=== PATIENT | male | born 1945 | race Caucasian/White ===

== ENCOUNTER 2017-03-30 12:17 | Inpatient (IN) | payer OTHER, MEDICARE ==
[2017-03-30 13:32] LABS: RDW 13.7 % (11.9-15.9)
--- NOTE | 2017-03-30 13:33 | PDOC ---
History of Present Illness - General Chief Complaint: Shortness of Breath Stated Complaint: COLD SYMPTOMS Time Seen by Provider: 03/30/17 12:52 History Source: Patient, Spouse Exam Limitations: No Limitations - History of Present Illness Initial Comments: Patient is a 71 yo M with a PMH of CLL (dx 15 years ago), DVT (5 years ago), presented today because of SOB that started today. He said he has been sick the past week with cough with green sputum production, congestion, sore throat, headache, and nausea, but the SOB started today. He reports having a temp of 101 at the house a few days ago. He took a cough suppressant over the counter which did not alleviate his symptoms. He is also on his 4th day of amoxacillin which he started taking on his own. He also mentioned he had tooth pain that started around the same time as his symptoms. He went to the dentist and said his tooth was infected. He denies urinary symptoms, chest pain, abdominal pain, dizziness and diarrhea. 03/30/17 13:23 03/30/17 14:57 03/30/17 15:23 Timing/Duration: reports: week Past History - Past Medical History Allergies/Adverse Reactions: Allergies Allergy/AdvReac Type Severity Reaction Status Date / Time No Known Drug Allergies Allergy Verified 11/29/14 01:25 Home Medications: Ambulatory Orders Amoxicillin/Potassium Clav [Augmentin 500-125 Tablet] 1 each PO TID 11/29/14 Warfarin Sodium 4 mg PO BID 11/29/14 Anemia: No Asthma: No Cancer: Yes (SKIN,CLL) Cardiac Disorders: No CVA: No COPD: No CHF: No DVT: Yes (recurrent DVT's) Dementia: No Diabetes: No GI Disorders: No Disorders: No HTN: No Hypercholesterolemia: No Liver Disease: No Seizures: No Thyroid Disease: No - Surgical History Abdominal Surgery: No Appendectomy: No Cardiac Surgery: No Cholecystectomy: No Lung Surgery: No Neurologic Surgery: No Orthopedic Surgery: No - Immunization History Immunization Up to Date: Yes - Suicide/Smoking/Psychosocial Hx Smoking History: Former smoker Have you smoked in the past 12 months: No If you are a former smoker, when did you quit?: 1968 Information on smoking cessation initiated: No Hx Alcohol Use: Yes (social) Drug/Substance Use Hx: No Substance Use Type: None Hx Substance Use Treatment: No Review of Systems - Review of Systems Able to Perform ROS?: Yes Is the patient limited Slovenian proficient: No Constitutional: Yes: Fever HEENTM: Yes: Nose Congestion, Throat Pain, Dental Problems Respiratory: Yes: Cough Cardiac (ROS): Yes: Palpitations. No: Chest Pain, Edema ABD/GI: No: Abdominal Distended, Diarrhea, Vomiting : No: Burning, Dysuria Neurological: Yes: Headache. No: Numbness, Tingling *Physical Exam - Vital Signs Last Vital Signs Temp Pulse Resp BP Pulse Ox 98.7 F 140 H 16 130/85 97 03/30/17 13:06 03/30/17 13:06 03/30/17 13:06 03/30/17 13:06 03/30/17 13:06 - Physical Exam General Appearance: Yes: Appropriately Dressed. No: Apparent Distress HEENT: positive: EOMI, Normal Voice, Symmetrical. negative: Scleral Icterus (R) , Scleral Icterus (L), Pharyngeal Erythema, Tonsillar Exudate, Tonsillar Erythema, Nasal Congestion Neck: positive: Supple Respiratory/Chest: positive: Lungs Clear, Normal Breath Sounds, Rapid RR. negative: Chest Tender, Decreased Breath Sounds, Wheezing Cardiovascular: positive: Tachycardia, Irregularly Irregular. negative: Regular Rhythm, Regular Rate Gastrointestinal/Abdominal: positive: Normal Bowel Sounds, Soft. negative: Tender, Distended Extremity: positive: Normal Capillary Refill. negative: Pedal Edema Neurologic: positive: Fully Oriented, Alert, Motor Strength 5/5 Heart Score/ECG Review - Troponin Troponin: </= normal limit - ECG Intrepretation Rhythm: Irregularly Irregular ED Treatment Course - LABORATORY CBC & Chemistry Diagram: 03/30/17 13:25 03/30/17 13:25 - RADIOLOGY Radiology Studies Ordered: Category Date Time Status CXRPORT [CHEST X-RAY PORTABLE*] [RAD] Stat Radiology 03/30/17 13:21 Ordered Progress Note - Progress Note Progress Note: #Rapid A-Fib #SOB #URI # r/o PE, hx of recurrent DVT Orders: -negative trops -EKG: rapid A-fib -BNP: 1046 -CTA chest -Blood Cultures -IVF: 1 L Bolus, .5L Bolus -Rate control with Metoprolol 5mg IV, 25mg PO Medical Decision Making - Medical Decision Making Patient is a 71 yo M with a PMH of recurrent DVT, CLL, presents today with SOB , cough, and a sore throat and was found to have new onset A-fib with RVR. #New onset A-fib -Dr. Wheat consulted -Irregularly irregular rythm -Rate control with Metoprolol 5mg IV, 25mg PO -trops negative -1 L BOLUS NS #SOB -history of DVT -CTA unremarkable for PE #Viral URI - cough, sore throat, nausea x 1 week -subjective fever -IV fluids -Supportive treatment #Elevated WBC -likely from history of CLL Discussed case with Dr. Wheat, agrees to admit patient for tele. *DC/Admit/Observation/Transfer Diagnosis at time of Disposition: SOB (shortness of breath) - Discharge Dispostion Condition at time of disposition: Fair Admit: Yes
[2017-03-30 13:44] LABS: INR 3.87 (0.82-1.09); PROTHROMBIN TIME (PATIENT) 43.7 SEC (9.98-11.88)
[2017-03-30 13:50] LABS: MCH 32.5 pg (25.7-33.7); MCHC 33.4 g/dl (32.0-35.9); MEAN CELL VOLUME 97.5 fl (80-96); MEAN PLT VOLUME 8.2 fl (7.5-11.1); PLATELET COUNT 143 K/MM3 (134-434)
[2017-03-30] MEDS ORDERED: SODIUM CHLORIDE 1,000 ML IV STA (13:53)
[2017-03-30 13:56] LABS: ALBUMIN 3.6 g/dl (3.4-5.0); ANION GAP 10 (8-16); BILIRUBIN,TOTAL 1.1 mg/dL (0.2-1.0); CALCIUM 8.7 mg/dL (8.5-10.1); CO2 25 mmol/L (21-32); GLUCOSE,RANDOM 117 mg/dL (74-106); SGPT/ALT 23 U/L (12-78)
[2017-03-30 13:58] LABS: WHITE BLOOD COUNT 234.1 K/mm3 (4.0-10.0)
[2017-03-30 14:00] LABS: ALK PHOS 156 U/L (45-117); CPK 64 IU/L (39-308); TROPONIN I < 0.02 ng/ml (0.00-0.05)
--- NOTE | 2017-03-30 14:13 | PDOC ---
Attending Attestation - Resident Resident Name: Mike Garrido - ED Attending Attestation I have performed the following: I have examined & evaluated the patient, The case was reviewed & discussed with the resident, I agree w/resident's findings & plan, Exceptions are as noted - HPI HPI: 03/30/17 14:03 71 M with h/o CLL, DVT on coumadin, presents to ER with SOB x 1 week. Pt states his symptoms began with nasal congestion and progressed to SOB. Pt denies CP. Endorses subjective fevers and chills. Denies leg swelling. Denies recent travel /immobilization. - Physicial Exam PE: 03/30/17 14:14 "GENERAL: Awake, alert, and fully oriented, in no acute distress HEAD: No signs of trauma EYES: PERRLA, EOMI, sclera anicteric, conjunctiva clear ENT: Auricles normal inspection, hearing grossly normal, nares patent, oropharynx clear without exudates. Moist mucosa NECK: Nontender, no stepoffs, Normal ROM, supple, no lymphadenopathy, JVD, or masses LUNGS: Breath sounds equal, clear to auscultation bilaterally. No wheezes, and no crackles HEART: irregularly irregular rhythm, normal S1 and S2, no murmurs, rubs or gallops ABDOMEN: Soft, normoactive bowel sounds. Nontender, No guarding, no rebound. No masses EXTREMITIES: Normal range of motion, no edema. No clubbing or cyanosis. No cords, erythema, or tenderness NEUROLOGICAL: Cranial nerves II through XII intact. 5/5 strength and sensation in all extremities, Normal speech, normal gait SKIN: Warm, Dry, normal turgor, no rashes or lesions noted. " - Medical Decision Making 03/30/17 14:15 71 M with CLL, DVT on coumadin, presenting to ER with SOB. Pt found to be in new onset atrial fibrillation with RVR, which may explain pt's symptoms. However , given h/o DVT, will need to r/o PE as well. Will also eval for infectious process given subjective fevers and tachycardia. - Labs, trop, BNP - CTA chest - Cultures - IVF - Rate control PRN 03/30/17 16:36 CBC,CMP WBC 234.1 K/mm3 (4.0-10.0) H* 03/30/17 13:25 RBC 3.81 M/mm3 (4.00-5.60) L 03/30/17 13:25 Hgb 12.4 GM/dL (11.7-16.9) 03/30/17 13:25 Hct 37.2 % (35.4-49) 03/30/17 13:25 MCV 97.5 fl (80-96) H 03/30/17 13:25 MCH 32.5 pg (25.7-33.7) 03/30/17 13:25 MCHC 33.4 g/dl (32.0-35.9) 03/30/17 13:25 RDW 13.7 % (11.9-15.9) 03/30/17 13:25 Plt Count 143 K/MM3 (134-434) D 03/30/17 13:25 MPV 8.2 fl (7.5-11.1) 03/30/17 13:25 Total Counted 100 03/30/17 13:25 Neutrophils % (Manual) 8 % (42.8-82.8) L 03/30/17 13:25 Lymphocytes % (Manual) 53 % (8-40) H 03/30/17 13:25 Monocytes % (Manual) 2 % (3.8-10.2) L 03/30/17 13:25 Smudge Cells Moderate 03/30/17 13:25 Platelet Estimate Decreased (NORMAL) 03/30/17 13:25 Platelet Comment No clumping noted 03/30/17 13:25 Sodium 138 mmol/L (136-145) 03/30/17 13:25 Potassium 4.3 mmol/L (3.5-5.1) 03/30/17 13:25 Chloride 103 mmol/L (98-107) 03/30/17 13:25 Carbon Dioxide 25 mmol/L (21-32) 03/30/17 13:25 Anion Gap 10 (8-16) 03/30/17 13:25 BUN 18 mg/dL (7-18) D 03/30/17 13:25 Creatinine 1.0 mg/dL (0.7-1.3) 03/30/17 13:25 Creat Clearance w eGFR > 60 (>60) 03/30/17 13:25 Random Glucose 117 mg/dL (74-106) H 03/30/17 13:25 Lactic Acid 1.0 mmol/L (0.4-2.0) 03/30/17 14:30 Calcium 8.7 mg/dL (8.5-10.1) 03/30/17 13:25 Total Bilirubin 1.1 mg/dL (0.2-1.0) H D 03/30/17 13:25 AST 25 U/L (15-37) D 03/30/17 13:25 ALT 23 U/L (12-78) D 03/30/17 13:25 Alkaline Phosphatase 156 U/L (45-117) H D 03/30/17 13:25 Creatine Kinase 64 IU/L (39-308) 03/30/17 13:25 Troponin I < 0.02 ng/ml (0.00-0.05) 03/30/17 13:25 B-Natriuretic Peptide 1046.28 pg/ml (5-125) H 03/30/17 13:25 Total Protein 7.0 g/dl (6.4-8.2) 03/30/17 13:25 Albumin 3.6 g/dl (3.4-5.0) 03/30/17 13:25 CXR clear. Pt with negative troponin. BNP elevated but pt with no evidence of pulmonary edema. CTA chest pending. Pt's heart rate with minimal response to 1.5 L NS bolus. Given metoprolol 5mg IV and 25mg PO for rate control with improvement in HR from 140 to 120. Additional metoprolol 5mg IV ordered. Pt signed out to night team at 5PM Disposition pending CTA chest, continued monitoring and rate control, and admission to hospital for further treatment. Case discussed in detail with oncoming Emergency Physician including history, physical exam and ancillary studies. Oncoming Emergency Physician has assumed care for the patient and will complete the evaluation and treatment. Patient is aware of the plan. Heart Score/ECG Review - ECG Impressions Comment:: 03/30/17 14:14 atrial fibrillation, rate 141, no MELANY/STDs, no TWIs, axis wnl
[2017-03-30 14:24] LABS: SGOT/AST 25 U/L (15-37)
[2017-03-30 14:29] LABS: PLATELET ESTIMATE DECREASED (NORMAL); REACTIVE LYMPHOCYTES 37 % (0-80); TOTAL CELLS COUNTED 100
[2017-03-30 14:30] LABS: SMUDGE CELLS MODERATE
[2017-03-30] MEDS ORDERED: METOPROLOL SUCCINATE 25 MG TAB.SR.24H (FP) PO ONE (14:52)
[2017-03-30] MEDS ORDERED: METOPROLOL TARTRATE 5 MG/5 ML VIAL IVPUSH ONE ×2 (14:52→16:22)
[2017-03-30] MEDS ORDERED: SODIUM CHLORIDE 500 ML IV STA (14:52)
[2017-03-30] MEDS ORDERED: METOPROLOL TARTRATE 5 MG/5 ML VIAL ONE ×2 (14:55→17:16)
[2017-03-30] MEDS ORDERED: METOPROLOL TARTRATE 25 MG TABLET (FP) ONE (14:56)
[2017-03-30] MEDS ORDERED: SODIUM CHLORIDE 1,000 ML IV SCH (20:15)
[2017-03-30 20:31] VITALS: BMI 25.4
[2017-03-30] MEDS ORDERED: PIPERACILLIN/TAZOB 3.375 GM/50 ML PRE-DOCKED IVPB SCH (21:15)
--- NOTE | 2017-03-30 21:16 | HP ---
Admitting History and Physical - Admission Chief Complaint: cough, shortness of breath History of Present Illness: 71 yo male, having sore throat, cough, phlegm "caught" in lungs for past week. Was taking Augmentin at home for past 4 days, but did not help. Does have a history of DVT of legs, for which he is on coumadin. Also has a history of CLL , with latest WBC patient remembers to be around 190,000. Follows with Dr Patino (oncology) and has never required treatment for it. Shortness of breath he is having seems to be due to coughing, as can talk without shortness of breath. Did have a fever at home of about 101. IN ED noted to have afib with rapid ventricular rate (150's). History Source: Patient, Family Member, Medical Record Limitations to Obtaining History: No Limitations - Past Medical History Renal/: Yes: Other (renal cyst) Heme/Onc: Yes: Other (chronic lymphocytic leukemia) - Past Surgical History Past Surgical History: Yes: Hernia Repair - Smoking History Smoking history: Former smoker Have you smoked in the past 12 months: No If you are a former smoker, when did you quit?: 1968 - Alcohol/Substance Use Hx Alcohol Use: Yes (social) - Social History Occupation: Formerly worked in [employer] dept at [employer] Other Social History: Home Medications - Allergies Allergies/Adverse Reactions: Allergies Allergy/AdvReac Type Severity Reaction Status Date / Time No Known Drug Allergies Allergy Verified 11/29/14 01:25 - Home Medications Home Medications: Ambulatory Orders Amoxicillin/Potassium Clav [Augmentin 500-125 Tablet] 1 each PO TID 11/29/14 Warfarin Sodium 4 mg PO BID 11/29/14 Family Disease History - Family Disease History Family Disease History: Diabetes: Mother Review of Systems - Review of Systems Constitutional: reports: Fever. denies: Loss of Appetite Eyes: reports: No Symptoms HENT: reports: Throat Pain Neck: denies: Stiffness, Swollen Glands, Tenderness Cardiovascular: denies: Chest Pain, Palpitations Respiratory: reports: Cough, SOB. denies: Hemoptysis Gastrointestinal: denies: Abdominal Pain, Constipation, Diarrhea, Nausea, Vomiting Genitourinary: denies: Burning, Discharge, Dysuria Physical Examination Vital Signs: Vital Signs Temperature 98.8 F 03/30/17 20:28 Pulse Rate 112 H 03/30/17 20:28 Respiratory Rate 23 03/30/17 20:28 Blood Pressure 144/91 03/30/17 20:28 O2 Sat by Pulse Oximetry (%) 96 03/30/17 20:34 Constitutional: Yes: Well Nourished, No Distress Eyes: Yes: Conjunctiva Clear, EOM Intact, PERRL HENT: Yes: Atraumatic, Normocephalic Neck: Yes: Supple, Trachea Midline Cardiovascular: Yes: Tachycardia, Pulse Irregular. No: Murmur Respiratory: Yes: Regular, Rhonchi. No: Rales, Wheezes Gastrointestinal: Yes: Normal Bowel Sounds, Soft. No: Distention, Tenderness Edema: No Neurological: Yes: Alert, Oriented Labs: Laboratory Tests 03/30/17 03/30/17 03/30/17 13:25 13:25 13:25 WBC 234.1 H* RBC 3.81 L Hgb 12.4 Hct 37.2 MCV 97.5 H MCH 32.5 MCHC 33.4 RDW 13.7 Plt Count 143 D MPV 8.2 Total Counted 100 Neutrophils % Neutrophils % (Manual) 8 L Lymphocytes % Lymphocytes % (Manual) 53 H Monocytes % Monocytes % (Manual) 2 L Eosinophils % Basophils % Smudge Cells Moderate Platelet Estimate Decreased Platelet Comment No clumping noted PT with INR 43.70 H INR 3.87 H D PTT (Actin FS) Sodium 138 Potassium 4.3 Chloride 103 Carbon Dioxide 25 Anion Gap 10 BUN 18 D Creatinine 1.0 Creat Clearance w eGFR > 60 Random Glucose 117 H Lactic Acid Calcium 8.7 Total Bilirubin 1.1 H D AST 25 D ALT 23 D Alkaline Phosphatase 156 H D Creatine Kinase 64 Troponin I < 0.02 B-Natriuretic Peptide 1046.28 H Total Protein 7.0 Albumin 3.6 03/30/17 03/30/17 03/30/17 13:50 14:30 20:55 WBC 247.0 H* RBC 3.49 L Hgb 11.0 L D Hct 33.9 L MCV 97.1 H MCH 31.7 MCHC 32.6 RDW 13.3 Plt Count 133 L MPV 8.2 Total Counted Neutrophils % 6.4 L D Neutrophils % (Manual) Lymphocytes % 89.8 H Lymphocytes % (Manual) Monocytes % 3.6 L Monocytes % (Manual) Eosinophils % 0.1 Basophils % 0.1 Smudge Cells Platelet Estimate Platelet Comment PT with INR INR PTT (Actin FS) 36.4 H D Sodium Potassium Chloride Carbon Dioxide Anion Gap BUN Creatinine Creat Clearance w eGFR Random Glucose Lactic Acid 1.0 Calcium Total Bilirubin AST ALT Alkaline Phosphatase Creatine Kinase Troponin I B-Natriuretic Peptide Total Protein Albumin Imaging - Results Cat Scan: Report Reviewed (no PE, right LL infiltrates/ atalectasis) Problem List - Problems (1) Atrial fibrillation with rapid ventricular response Assessment/Plan: -given metoprolol, IVP and PO -will start bid metoprolol PO dosing and prn IVP for HR>150 -cardio to consult Code(s): I48.91 - UNSPECIFIED ATRIAL FIBRILLATION (2) Pneumonia Assessment/Plan: -CXR read as clear, but CT chest showing infiltrates -start Zosyn as was on PO Augmentin and not improved (ID consult for antibiotic ordering) Code(s): J18.9 - PNEUMONIA, UNSPECIFIED ORGANISM (3) CLL (chronic lymphocytic leukemia) Assessment/Plan: -worsening WBC due to pneumonia? -heme eval (patient reports recent WBC outpatient at 196,000) Code(s): C91.10 - CHRONIC LYMPHOCYTIC LEUK OF B-CELL TYPE NOT ACHIEVE REMIS (4) DVT (deep venous thrombosis) Assessment/Plan: -on coumadin (slightly elevated INR -hold coumadin today) Code(s): I82.409 - ACUTE EMBOLISM AND THOMBOS UNSP DEEP VN UNSP LOWER EXTREMITY
[2017-03-30 21:21] LABS: BASOPHIL 0.1 % (0-2.0); EOSINOPHIL 0.1 % (0-4.5); MCH 31.7 pg (25.7-33.7); MCHC 32.6 g/dl (32.0-35.9); MEAN CELL VOLUME 97.1 fl (80-96); MEAN PLT VOLUME 8.2 fl (7.5-11.1); NEUTROPHILS 6.4 % (42.8-82.8); PLATELET COUNT 133 K/MM3 (134-434); RDW 13.3 % (11.9-15.9)
[2017-03-30] MEDS: SODIUM CHLORIDE 1,000 ML IV SCH (21:56)
[2017-03-30] MEDS: PIPERACILLIN/TAZOB 3.375 GM 50 ML IVPB SCH (22:00)
[2017-03-30] MEDS ORDERED: METOPROLOL SUCCINATE 25 MG TAB.SR.24H (FP) PO SCH (22:00)
[2017-03-30 22:23] LABS: TROPONIN I 0.02 ng/ml (0.00-0.05)
[2017-03-30 22:25] LABS: URIC ACID 4.3 mg/dL (2.6-7.2)
[2017-03-31] MEDS: PIPERACILLIN/TAZOB 3.375 GM 50 ML IVPB SCH (03:12)
[2017-03-31 06:31] LABS: MCH 32.9 pg (25.7-33.7); MCHC 33.9 g/dl (32.0-35.9); MEAN CELL VOLUME 96.9 fl (80-96); MEAN PLT VOLUME 8.4 fl (7.5-11.1); PLATELET COUNT 135 K/MM3 (134-434); RDW 13.6 % (11.9-15.9)
[2017-03-31 06:39] LABS: INR 3.38 (0.82-1.09); PROTHROMBIN TIME (PATIENT) 38.2 SEC (9.98-11.88)
[2017-03-31 07:19] LABS: ALBUMIN 2.9 g/dl (3.4-5.0); ANION GAP 9 (8-16); CALCIUM 7.6 mg/dL (8.5-10.1); CO2 25 mmol/L (21-32); GLUCOSE,RANDOM 86 mg/dL (74-106); SGOT/AST 14 U/L (15-37); SGPT/ALT 17 U/L (12-78)
[2017-03-31 07:21] LABS: ALK PHOS 130 U/L (45-117); BILIRUBIN,TOTAL 1.2 mg/dL (0.2-1.0); CREATININE 0.8 mg/dL (0.7-1.3); TOT PROT 5.8 g/dl (6.4-8.2)
[2017-03-31 07:24] LABS: TROPONIN I 0.02 ng/ml (0.00-0.05)
[2017-03-31 07:58] LABS: TOTAL CELLS COUNTED 100; WHITE BLOOD COUNT 213.5 K/mm3 (4.0-10.0)
[2017-03-31] MEDS ORDERED: ONDANSETRON 4 MG/2 ML VIAL IVPUSH PRN (08:50)
--- NOTE | 2017-03-31 08:51 | CON.CARD ---
Consult Consult Specialty:: cardio Referred by:: lauro Reason for Consultation:: afib - History of Present Illness Chief Complaint: sob History of Present Illness: 71 yo male with sore throat, cough, phlegm "caught" in lungs, nasal congestion for past week. Was self-treating with Augmentin at home for past 4 days, but did not help. had "infected tooth" at dentist recently. on DOA he felt heart pounding in chest, diaphoretic and weak. says he's not sure that he felt any sob at that time or since. denies cp at any time. currently no palpitations but feeling of "rock" in there in upper abdomen near diaphragm--noted this at home as well; felt weak when sitting in chair at bedside earlier, now back in bed in rapid AF to 140s in ER PMH: CLL DVT--on warfarin since (x5 yrs) denies h/o HTN, DM, HPL, CV dz, prior CHF or CVA - Past Medical History Renal/: Yes: Other (renal cyst) - Past Surgical History Past Surgical History: Yes: Hernia Repair - Alcohol/Substance Use Hx Alcohol Use: Yes (social) - Smoking History Smoking history: Former smoker Have you smoked in the past 12 months: No If you are a former smoker, when did you quit?: 1968 - Social History Occupation: Formerly worked in [employer] dept at [employer] Medications - Allergies Allergies/Adverse Reactions: Allergies Allergy/AdvReac Type Severity Reaction Status Date / Time No Known Drug Allergies Allergy Verified 11/29/14 01:25 - Home Medications Home Medications: Ambulatory Orders Amoxicillin/Potassium Clav [Augmentin 500-125 Tablet] 1 each PO TID 11/29/14 Warfarin Sodium 4 mg PO BID 11/29/14 Family Disease History - Family Disease History Family Disease History: Diabetes: Mother Review of Systems - Review of Systems Constitutional: reports: Weakness. denies: Chills, Fever Eyes: denies: Eye Pain HENT: denies: Nasal Congestion Neck: denies: Stiffness Cardiovascular: denies: Edema Respiratory: denies: Orthopnea, PND Gastrointestinal: denies: Diarrhea, Rectal Bleeding Genitourinary: denies: Burning, Hematuria Musculoskeletal: denies: Muscle Pain Integumentary: denies: Rash Neurological: denies: Numbness, Seizure, Syncope Endocrine: denies: Excessive Sweating Hematology/Lymphatic: denies: Excessive Bleeding Vital Signs: Vital Signs Temperature 97.6 F 03/31/17 06:00 Pulse Rate 118 H 03/31/17 06:00 Respiratory Rate 16 03/31/17 06:00 Blood Pressure 135/71 03/31/17 06:00 O2 Sat by Pulse Oximetry (%) 96 03/30/17 20:34 Constitutional: Yes: Well Nourished, No Distress Eyes: No: Sclera Icterus HENT: No: Nasal Congestion Neck: No: Decreased ROM Respiratory: Yes: CTA Bilaterally. No: Accessory Muscle Use, Rales, Wheezes Gastrointestinal: Yes: Normal Bowel Sounds. No: Distention, Hepatomegaly, Palpable Mass, Tenderness Cardiovascular: Yes: Pulse Irregular JVD: No Carotid Bruit: No PMI: Non-Displaced Heart Sounds: Yes: S1, S2. No: Gallop Murmur: No: Systolic Murmur, Diastolic Murmur Musculoskeletal: Yes: Other (No kyphosis) Extremities: No: Cold, Cyanosis Edema: No Peripheral Pulses: 2+ Left Carotid, 2+ Right Carotid, 2+ Left Doralis Pedis, 2+ Right Dorsalis Pedis Integumentary: No: Jaundice Neurological: Yes: Alert, Oriented (x3) Psychiatric: No: Agitated - Other Data Labs, Other Data: CBC, BMP 03/31/17 05:05 03/31/17 05:05 INR, PTT INR 3.38 (0.82-1.09) H 03/31/17 05:05 Troponin, BNP 03/30/17 03/31/17 20:55 05:05 Troponin I 0.02 0.02 Troponin, BNP 03/30/17 03/31/17 20:55 05:05 Troponin I 0.02 0.02 Laboratory Tests 03/30/17 03/30/17 03/31/17 13:25 20:55 05:05 WBC Hgb Plt Count INR Sodium Potassium Carbon Dioxide BUN Creatinine AST ALT Troponin I < 0.02 0.02 0.02 B-Natriuretic Peptide 1046.28 H Albumin 03/31/17 03/31/17 03/31/17 05:05 05:05 05:05 WBC 213.5 H* Hgb 11.6 L Plt Count 135 INR 3.38 H Sodium 140 Potassium 3.8 Carbon Dioxide 25 BUN 16 Creatinine 0.8 AST 14 L D ALT 17 D Troponin I B-Natriuretic Peptide Albumin 2.9 L tele: AF 120s-150s Assessment/Plan EKG--AF 140s bpm; normal axis/interv; no path q's, no ST-Ts CTA chest: no PE; heart unremarkable; bibasilar atx with R base airspace dz/ infiltrates PNA: -? due to bronchitis (only occurs when coughing?) -? due to new, rapid AF on day of admit -? chf (triggered by AF of ? duration at home) -CT chest suggestive of R base PNA--abx per pmd -BNP 1000, no priors -phys exam no signs of chf -trop neg x 3, ECG non-ischemic -echo -no diuresis at present AF: -HRs rapid in ER, modestly responded to po and IV metoprolol -sx's of palpitations, diaphoresis, weakness -incr toprol 50 bid -cont warfarin (for DVT tx) -echo -defer stress testing to routine eval as outpt, given no s/sx of acute ischemia here -if remains in AF with difficult HR control or ongoing sx's, will plan BERNICE/DCCV prior to discharge (once coughing and PNA under control0 -if HR controlled and pt asymptomatic, will d/w pt options of DCCV vs rate control strategy DVT (old): -on lifelong warfarin since -per heme/pmd CLL: -per heme
--- NOTE | 2017-03-31 09:35 | PN ---
Progress Note, Physician History of Present Illness: Patient reported by nurse earlier to be nauseous, elevated heart rate when getting out of bed. Patient still feels mucous caught in chest that he cannot expel is giving him problems. - Current Medication List Current Medications: Active Medications Albuterol Sulfate (Ventolin 0.083% Nebulizer Soln -) 1 amp NEB QIDR [facility] Guaifenesin (Robitussin Dm -) 10 ml PO Q6H PRN PRN Reason: COUGH Sodium Chloride (Normal Saline -) 1,000 mls @ 75 mls/hr IV ASDIR [facility] Last Admin: 03/30/17 21:56 Dose: 75 mls/hr Metoprolol Succinate (Toprol Xl -) 25 mg PO BID [facility] Last Admin: 03/30/17 21:58 Dose: 25 mg Metoprolol Tartrate (Lopressor Injection -) 5 mg IVPUSH Q4H PRN PRN Reason: TACHYCARDIA Ondansetron HCl (Zofran Injection) 4 mg IVPUSH Q6H PRN PRN Reason: NAUSEA Piperacillin Sod/Tazobactam Sod (Zosyn 3.375gm Ivpb (Pre-Docked)) 3.375 gm IVPB Q8H [facility] PRN Reason: Protocol - Objective Vital Signs: Vital Signs Temperature 97.6 F 03/31/17 06:00 Pulse Rate 118 H 03/31/17 06:00 Respiratory Rate 16 03/31/17 06:00 Blood Pressure 135/71 03/31/17 06:00 O2 Sat by Pulse Oximetry (%) 96 03/30/17 20:34 Constitutional: Yes: No Distress, Calm Neck: Yes: Supple, Trachea Midline Cardiovascular: Yes: Tachycardia Respiratory: Yes: Regular, CTA Bilaterally. No: Rales, Rhonchi, Wheezes Gastrointestinal: Yes: Normal Bowel Sounds, Soft. No: Distention, Tenderness Edema: No Neurological: Yes: Alert, Oriented Labs: CBC, BMP 03/31/17 05:05 03/31/17 05:05 INR, PTT INR 3.38 (0.82-1.09) H 03/31/17 05:05 Problem List - Problems (1) Atrial fibrillation with rapid ventricular response Code(s): I48.91 - UNSPECIFIED ATRIAL FIBRILLATION (2) Pneumonia Code(s): J18.9 - PNEUMONIA, UNSPECIFIED ORGANISM (3) CLL (chronic lymphocytic leukemia) Code(s): C91.10 - CHRONIC LYMPHOCYTIC LEUK OF B-CELL TYPE NOT ACHIEVE REMIS (4) DVT (deep venous thrombosis) Code(s): I82.409 - ACUTE EMBOLISM AND THOMBOS UNSP DEEP VN UNSP LOWER EXTREMITY Assessment/Plan Current Active Problems Atrial fibrillation with rapid ventricular response (Acute) CLL (chronic lymphocytic leukemia) (Acute) DVT (deep venous thrombosis) (Acute) Pneumonia (Acute) SOB (shortness of breath) (Acute) -cont abx, start neb's to try to bring up phlegm -cardio consulting -metoprolol for rate control for now -already anticoagulated from h/o DVT -heme eval of elevated WBC
--- NOTE | 2017-03-31 09:50 | CONSULT ---
Consult Consult Specialty:: PULM/CCM Referred by:: JASWINDER Reason for Consultation:: SOB / Concern for Sepsis - History of Present Illness Chief Complaint: SOB / cough History of Present Illness: 71 M, known CLL. Admitted via the ER due to a few days of sore throat, cough, and phlegm. Patient reports that a few of his children have respiratory symptoms for the past several days and he is their proimary health care coordinator. No travel history. No hemoptysis, night sweats, weight loss. Patient was self treating with Augmentin for about 4 days at home. He has a known history of DVT on Coumadin. CT: Basilar infiltrates / atelectasis / No PE - History Source History Provided By: Patient Limitations to Obtaining History: No Limitations - Past Medical History Renal/: Yes: Other (renal cyst) - Past Surgical History Past Surgical History: Yes: Hernia Repair - Alcohol/Substance Use Hx Alcohol Use: Yes (social) - Smoking History Smoking history: Former smoker Have you smoked in the past 12 months: No If you are a former smoker, when did you quit?: 1968 - Social History Occupation: Formerly worked in [employer] dept at [employer] Medications - Allergies Allergies/Adverse Reactions: Allergies Allergy/AdvReac Type Severity Reaction Status Date / Time No Known Drug Allergies Allergy Verified 11/29/14 01:25 - Home Medications Home Medications: Ambulatory Orders Amoxicillin/Potassium Clav [Augmentin 500-125 Tablet] 1 each PO TID 11/29/14 Warfarin Sodium 4 mg PO BID 11/29/14 Family Disease History - Family Disease History Family Disease History: Diabetes: Mother Review of Systems - Review of Systems Constitutional: reports: Fever, Malaise. denies: Chills, Night Sweats, Unintentional Wgt. Loss Eyes: reports: No Symptoms HENT: reports: No Symptoms Neck: reports: No Symptoms Cardiovascular: reports: Shortness of Breath. denies: Chest Pain, Edema, Palpitations Respiratory: reports: Cough, SOB, SOB on Exertion. denies: Hemoptysis, Snoring , Wheezing Gastrointestinal: reports: No Symptoms Genitourinary: reports: No Symptoms Breasts: reports: No Symptoms Reported Musculoskeletal: reports: No Symptoms Integumentary: reports: No Symptoms Neurological: reports: No Symptoms Endocrine: reports: No Symptoms Hematology/Lymphatic: reports: No Symptoms Psychiatric: reports: No Symptoms Physical Exam Vital Signs: Vital Signs Temperature 97.6 F 03/31/17 06:00 Pulse Rate 118 H 03/31/17 06:00 Respiratory Rate 16 03/31/17 06:00 Blood Pressure 135/71 03/31/17 06:00 O2 Sat by Pulse Oximetry (%) 96 03/30/17 20:34 Constitutional: Yes: Well Nourished, No Distress Eyes: Yes: Conjunctiva Clear, EOM Intact, Other HENT: Yes: Normocephalic Neck: Yes: Supple, Trachea Midline Cardiovascular: Yes: Regular Rate and Rhythm Respiratory: Yes: Cough, Diminished, Rhonchi. No: Accessory Muscle Use, Rales, Stridor, Tachypnea, Wheezes Gastrointestinal: Yes: Normal Bowel Sounds, Soft ...Rectal Exam: No: Deferred Renal/: Yes: WNL Musculoskeletal: Yes: WNL Edema: No Peripheral Pulses WNL: Yes Integumentary: Yes: WNL Neurological: Yes: WNL, Alert, Oriented ...Motor Strength: WNL Psychiatric: Yes: WNL, Alert, Oriented Labs: CBC, BMP 03/31/17 05:05 03/31/17 05:05 Imaging - Results Chest X-ray: Report Reviewed Cat Scan: Report Reviewed, Image Reviewed Problem List - Problems (1) CLL (chronic lymphocytic leukemia) Code(s): C91.10 - CHRONIC LYMPHOCYTIC LEUK OF B-CELL TYPE NOT ACHIEVE REMIS (2) Pneumonia Code(s): J18.9 - PNEUMONIA, UNSPECIFIED ORGANISM (3) SOB (shortness of breath) Code(s): R06.02 - SHORTNESS OF BREATH (4) Atrial fibrillation with rapid ventricular response Code(s): I48.91 - UNSPECIFIED ATRIAL FIBRILLATION (5) DVT (deep venous thrombosis) Code(s): I82.409 - ACUTE EMBOLISM AND THOMBOS UNSP DEEP VN UNSP LOWER EXTREMITY Assessment/Plan Rocephin daily, noted ID was called Check cultures Check sputum Urinary antigen O2 as needed AC Heme/Onc evaluation Dr Guzman Critical care time spent in reviewing chart, evaluating patient and formulating plan - 36 minutes.
[2017-03-31] MEDS ORDERED: METOPROLOL SUCCINATE 50 MG TAB.SR.24H (FP) PO SCH (10:30)
[2017-03-31 10:38] LABS: URINE APPEARANCE CLEAR; URINE BILIRUBIN NEGATIVE (NEGATIVE); URINE BLOOD 2+ (NEGATIVE); URINE COLOR LTYELLOW; URINE GLUCOSE (UA) NEGATIVE (NEGATIVE); URINE KETONE NEGATIVE (NEGATIVE); URINE NITRITE NEGATIVE (NEGATIVE); URINE PROTEIN NEGATIVE (NEGATIVE); URINE UROBILINOGEN NEGATIVE mg/dL (0.2-1.0)
[2017-03-31] MEDS ORDERED: CEFTRIAXONE 1 G/50 ML PREMIX 50 ML IVPB SCH (10:45)
[2017-03-31] MEDS: METOPROLOL SUCCINATE 50 MG TAB.SR.24H (FP) PO SCH ×2 (10:54→21:22)
[2017-03-31 11:01] LABS: URINE RBC 16 /hpf (0-3); URINE WBC 1 /hpf (3-5)
--- NOTE | 2017-03-31 11:23 | PN ---
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 reports having a cough for the last week, also dental pain saw dentist who put some antibiotic medicine in his mouth nonproductive cough came to ED yesterday d/co SOB, found to be in rapid afib chest cta no PE, RLL infiltrate he has been on po amox for 4 days at home RLL pneumonia CLL- not neutropenic history of DVT cultures legionella urinary antigen mycoplasma serology rocephin/zithromax follow INR closely while on antibiotics d/w dr restrepo Problem List - Problems (1) Pneumonia Code(s): J18.9 - PNEUMONIA, UNSPECIFIED ORGANISM (2) DVT (deep venous thrombosis) Code(s): I82.409 - ACUTE EMBOLISM AND THOMBOS UNSP DEEP VN UNSP LOWER EXTREMITY (3) CLL (chronic lymphocytic leukemia) Code(s): C91.10 - CHRONIC LYMPHOCYTIC LEUK OF B-CELL TYPE NOT ACHIEVE REMIS (4) Atrial fibrillation with rapid ventricular response Code(s): I48.91 - UNSPECIFIED ATRIAL FIBRILLATION
[2017-03-31] MEDS ORDERED: cefTRIAXone 1 GM/50 ML BAG (PRE-DOCKED) IVPB ONE (11:27)
[2017-03-31] MEDS: guaiFENesin/D-METHORPHAN HB 10 ML UNIT-DOSE CUPS PO PRN ×2 (11:30→21:23)
[2017-03-31] MEDS ORDERED: AZITHROMYCIN IVPB 500 MG in DEXTROSE 5%-WATER - 250 ML IVPB ONE (12:30)
[2017-03-31] MEDS ORDERED: CEFTRIAXONE 1 G/50 ML PREMIX 50 ML IVPB ONE (12:30)
[2017-03-31] MEDS: ALBUTEROL SO4 0.083% IH SOL 2.5 MG/3 ML VIAL.NEB. NEB SCH ×2 (13:24→19:17)
[2017-03-31 14:22] LABS: URINE LEUK ESTERASE Negative (NEGATIVE)
[2017-03-31] MEDS ORDERED: ALBUTEROL SO4 0.083% IH SOL 2.5 MG/3 ML VIAL.NEB. NEB ONE (19:08)
[2017-03-31] MEDS: METOPROLOL TARTRATE 5 MG/5 ML VIAL IVPUSH PRN (19:25)
[2017-03-31] MEDS: SODIUM CHLORIDE 1,000 ML IV SCH (21:22)
[2017-04-01] MEDS: ALBUTEROL SO4 0.083% IH SOL 2.5 MG/3 ML VIAL.NEB. NEB SCH ×4 (00:06→17:30)
[2017-04-01 06:18] LABS: MCH 32.5 pg (25.7-33.7); MCHC 33.8 g/dl (32.0-35.9); MEAN CELL VOLUME 96.3 fl (80-96); MEAN PLT VOLUME 8.2 fl (7.5-11.1); PLATELET COUNT 135 K/MM3 (134-434); RDW 13.5 % (11.9-15.9)
[2017-04-01 06:25] LABS: INR 2.84 (0.82-1.09); PROTHROMBIN TIME (PATIENT) 32.1 SEC (9.98-11.88)
[2017-04-01 06:42] LABS: WHITE BLOOD COUNT 207.1 K/mm3 (4.0-10.0)
[2017-04-01 06:46] LABS: ALBUMIN 2.7 g/dl (3.4-5.0); ALK PHOS 120 U/L (45-117); ANION GAP 8 (8-16); BILIRUBIN,TOTAL 0.6 mg/dL (0.2-1.0); CALCIUM 7.7 mg/dL (8.5-10.1); CO2 25 mmol/L (21-32); CREATININE 0.7 mg/dL (0.7-1.3); GLUCOSE,RANDOM 107 mg/dL (74-106); SGOT/AST 19 U/L (15-37); SGPT/ALT 22 U/L (12-78); TOT PROT 5.6 g/dl (6.4-8.2)
[2017-04-01] MEDS: METOPROLOL TARTRATE 5 MG/5 ML VIAL IVPUSH PRN ×2 (07:32→08:53)
--- NOTE | 2017-04-01 07:52 | PN ---
Physical Exam: SUBJECTIVE: Patient seen and examined at bedside. He had a diffuse sweating all over his body around 9 pm yesterday, still coughing , with green sputum, still have some heaviness in the mid sternal area. OBJECTIVE: Vital Signs Period Temp Pulse Resp BP Sys/Marin Pulse Ox Last 24 Hr 98.2 F-99.6 F 98-158 18-26 100-146/61-89 96-98 GENERAL: The patient is awake, alert, and fully oriented, in no acute distress. HEAD: Normal with no signs of trauma. EYES: conjunctiva clear. No ptosis. ENT: moist mucous membranes. LUNGS: Breath sounds equal, clear to auscultation bilaterally, no wheezes, no crackles, no accessory muscle use. HEART: irregular rate and rhythm, S1, S2 without murmur, rub or gallop. ABDOMEN: Soft, nontender, nondistended, normoactive bowel sounds, no guarding, no rebound, EXTREMITIES: warm, well-perfused, no edema. NEUROLOGICAL:good mentation SKIN: Warm, dry, no rashes or lesions noted Laboratory Results - last 24 hr 03/31/17 03/31/17 04/01/17 04:30 05:05 05:00 WBC 213.5 H* RBC 3.53 L Hgb 11.6 L Hct 34.2 L MCV 96.9 H MCH 32.9 MCHC 33.9 RDW 13.6 Plt Count 135 MPV 8.4 Total Counted 100 Neutrophils % Neutrophils % (Manual) 5 L Lymphocytes % Lymphocytes % (Manual) 92 H* Monocytes % (Manual) 3 L PT with INR 32.10 H INR 2.84 H Sodium Potassium Chloride Carbon Dioxide Anion Gap BUN Creatinine Creat Clearance w eGFR Random Glucose Calcium Total Bilirubin AST ALT Alkaline Phosphatase Total Protein Albumin Urine Color Ltyellow Urine Appearance Clear Urine pH 5.0 D Ur Specific [place] 1.020 Urine Protein Negative Urine Glucose (UA) Negative Urine Ketones Negative Urine Blood 2+ H Urine Nitrite Negative Urine Bilirubin Negative Urine Urobilinogen Negative Ur Leukocyte Esterase Negative Urine RBC 16 Urine WBC 1 04/01/17 04/01/17 05:00 05:00 WBC 207.1 H* RBC 3.45 L Hgb 11.2 L Hct 33.2 L MCV 96.3 H MCH 32.5 MCHC 33.8 RDW 13.5 Plt Count 135 MPV 8.2 Total Counted Neutrophils % No Result Required. Neutrophils % (Manual) Lymphocytes % No Result Required. Lymphocytes % (Manual) Monocytes % (Manual) PT with INR INR Sodium 141 Potassium 3.8 Chloride 108 H Carbon Dioxide 25 Anion Gap 8 BUN 15 Creatinine 0.7 Creat Clearance w eGFR > 60 Random Glucose 107 H D Calcium 7.7 L Total Bilirubin 0.6 D AST 19 D ALT 22 D Alkaline Phosphatase 120 H Total Protein 5.6 L Albumin 2.7 L Urine Color Urine Appearance Urine pH Ur Specific [place] Urine Protein Urine Glucose (UA) Urine Ketones Urine Blood Urine Nitrite Urine Bilirubin Urine Urobilinogen Ur Leukocyte Esterase Urine RBC Urine WBC Active Medications Generic Name Dose Route Start Last Admin Trade Name Freq PRN Reason Stop Dose Admin Albuterol Sulfate 1 amp 03/31/17 12:00 04/01/17 06:10 Ventolin 0.083% Nebulizer Soln - NEB 1 amp QIDR ROSI Administration Ceftriaxone Sodium 2 gm 04/01/17 10:00 Rocephin 2gm Ivpb (Pre-Docked) IVPB DAILY [facility] Protocol Guaifenesin 10 ml 03/30/17 21:09 03/31/17 21:23 Robitussin Dm - PO 10 ml Q6H PRN Administration COUGH Sodium Chloride 1,000 mls @ 75 mls/hr 03/30/17 21:10 03/31/17 21:22 Normal Saline - IV 75 mls/hr ASDIR ROSI Administration Azithromycin 250 mg/ Dextrose 250 mls @ 250 mls/hr 04/01/17 10:00 IVPB DAILY ROSI Metoprolol Succinate 50 mg 03/31/17 10:20 03/31/17 21:22 Toprol Xl - PO 50 mg BID ROSI Administration Metoprolol Tartrate 5 mg 03/30/17 21:05 04/01/17 07:32 Lopressor Injection - IVPUSH 5 mg Q4H PRN Administration TACHYCARDIA CBC, BMP 04/01/17 05:00 04/01/17 05:00 Microbiology 03/30/17 14:30 Blood - Peripheral Venous Blood Culture - Preliminary NO GROWTH OBTAINED AFTER 24 HOURS, INCUBATION TO CONTINUE FOR 4 DAYS. 03/30/17 14:30 Blood - Peripheral Venous Blood Culture - Preliminary NO GROWTH OBTAINED AFTER 24 HOURS, INCUBATION TO CONTINUE FOR 4 DAYS. 03/31/17 13:39 Urine For Antigen Detection Legionella Antigen - Final 03/31/17 13:39 Urine For Antigen Detection Streptococcus pneumoniae Antigen (M - Final ASSESSMENT/PLAN: (1) CLL (chronic lymphocytic leukemia) Code(s): C91.10 - CHRONIC LYMPHOCYTIC LEUK OF B-CELL TYPE NOT ACHIEVE REMIS (2) Pneumonia Code(s): J18.9 - PNEUMONIA, UNSPECIFIED ORGANISM (3) SOB (shortness of breath) Code(s): R06.02 - SHORTNESS OF BREATH (4) Atrial fibrillation with rapid ventricular response Code(s): I48.91 - UNSPECIFIED ATRIAL FIBRILLATION (5) DVT (deep venous thrombosis) Code(s): I82.409 - ACUTE EMBOLISM AND THOMBOS UNSP DEEP VN UNSP LOWER EXTREMITY Plan : continue Abx Rocephin/Zithromax UA negative Urine legionella Ag negative , Urine strep pneumonia Ag negative Blood cx no growth over 24 hours rest per ICU team
--- NOTE | 2017-04-01 08:21 | PN ---
Progress Note, Physician Chief Complaint: ID Ceftriaxone and Azithromycin Clinical improvement - Current Medication List Current Medications: Active Medications Albuterol Sulfate (Ventolin 0.083% Nebulizer Soln -) 1 amp NEB QIDR [facility] Last Admin: 04/01/17 06:10 Dose: 1 amp Ceftriaxone Sodium (Rocephin 2gm Ivpb (Pre-Docked)) 2 gm IVPB DAILY ROSI PRN Reason: Protocol Guaifenesin (Robitussin Dm -) 10 ml PO Q6H PRN PRN Reason: COUGH Last Admin: 03/31/17 21:23 Dose: 10 ml Sodium Chloride (Normal Saline -) 1,000 mls @ 75 mls/hr IV ASDIR [facility] Last Admin: 03/31/17 21:22 Dose: 75 mls/hr Azithromycin 250 mg/ Dextrose 250 mls @ 250 mls/hr IVPB DAILY [facility] Metoprolol Succinate (Toprol Xl -) 50 mg PO BID [facility] Last Admin: 03/31/17 21:22 Dose: 50 mg Metoprolol Tartrate (Lopressor Injection -) 5 mg IVPUSH Q4H PRN PRN Reason: TACHYCARDIA Last Admin: 04/01/17 07:32 Dose: 5 mg - Objective Vital Signs: Vital Signs Temperature 98.2 F 04/01/17 06:00 Pulse Rate 152 H 04/01/17 07:32 Respiratory Rate 20 04/01/17 06:00 Blood Pressure 123/78 04/01/17 07:32 O2 Sat by Pulse Oximetry (%) 98 03/31/17 19:33 Constitutional: Yes: Well Nourished, No Distress HENT: Yes: WNL, Atraumatic Neck: Yes: WNL, Supple Cardiovascular: Yes: Regular Rate and Rhythm, Tachycardia, S1, S2. No: Murmur Respiratory: Yes: WNL, Regular, CTA Bilaterally. No: Rales, Rhonchi Gastrointestinal: Yes: WNL, Normal Bowel Sounds, Soft. No: Tenderness Extremities: No: Cold, Cool, Cyanosis Labs: CBC, BMP 04/01/17 05:00 04/01/17 05:00 INR, PTT INR 2.84 (0.82-1.09) H 04/01/17 05:00 Assessment/Plan Laboratory Tests 04/01/17 04/01/17 05:00 05:00 WBC 207.1 H* Hgb 11.2 L Hct 33.2 L Plt Count 135 BUN 15 Creatinine 0.7 Creat Clearance w eGFR > 60 Assessment CLL and pneumonia ? Viral bacterial disease Strep pneumo would be likely Atrial fibrillation Plan Continue current therapy IV antibiotics as ordered Ceftriaxone and Azithromycin Grace LEWIS
[2017-04-01 08:53] LABS: PLATELET ESTIMATE ADEQUATE (NORMAL); SMUDGE CELLS MANY; TOTAL CELLS COUNTED 100
[2017-04-01] MEDS ORDERED: PT OWN MED DRAWER 7, Y5N ONE (09:09)
[2017-04-01] MEDS: cefTRIAXone 2 GM/100 ML BAG (PRE-DOCKED) IVPB SCH (09:13)
[2017-04-01] MEDS: METOPROLOL SUCCINATE 50 MG TAB.SR.24H (FP) PO SCH ×2 (09:41→21:16)
[2017-04-01] MEDS: AZITHROMYCIN IVPB 250 MG in DEXTROSE 5%-WATER - 250 ML IVPB SCH (09:41)
--- NOTE | 2017-04-01 10:13 | PN ---
Progress Note (short form) - Note Progress Note: Patient with CLL and recurrence of DVT comes to the hospital with SOB and found to have Acute Pulmonary infiltrate and Atrial Fibrillation. 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 This is new atrial fibrillation. The patient denies chest pain or palpitations in spite of the rapid irregular heart rate Slight cough no hemoptysis. On exam: Vital Signs Temp 98.7 F 04/01/17 14:00 Pulse 84 04/01/17 20:00 Resp 25 H 04/01/17 20:42 BP 115/59 04/01/17 20:00 Pulse Ox 96 04/01/17 20:42 Intake & Output 03/31/17 04/01/17 04/01/17 23:59 11:59 23:59 Intake Total 2500 855 1760 Output Total 800 750 800 Balance 1700 105 960 Weight 174 lb 2 oz Intake: IV 1200 525 750 Normal Saline - 1,000 ml 1200 525 750 @ 75 mls/hr IV ASDIR ROSI Rx#:[id number] IVPB 350 350 Oral 950 330 660 Output: Urine 800 750 800 Void 800 750 800 Other: Voiding Method Urinal Toilet Urinal # Unmeasured Voids Void 2 Weight Measurement Method Built in Bedscale alert and appears calm Chest a few rales more at the right base Heart tachycardia. Abdomen soft with no focal tenderness mass or pulsations. Could not discretely palpate enlarged spleen. Extremities no pedal edema good dorsalis pedis pulses Abnormal Lab Results 04/01/17 04/01/17 04/01/17 05:00 05:00 05:00 WBC 207.1 H* RBC 3.45 L Hgb 11.2 L Hct 33.2 L MCV 96.3 H Neutrophils % (Manual) 4 L Lymphocytes % (Manual) 95 H* D Monocytes % (Manual) 1 L PT with INR 32.10 H INR 2.84 H Chloride 108 H Random Glucose 107 H D Calcium 7.7 L Alkaline Phosphatase 120 H Total Protein 5.6 L Albumin 2.7 L impression: Acute pulmonary infiltrate, probable pneumonia Acute atrial fibrillation CLL followed by hematology History of DVT, recurrent Plan: Continue Coumadin and follow INR. Followup chest x-ray Followup pulmonary in cardiology MDs Followup CBC
--- NOTE | 2017-04-01 10:53 | PN ---
Progress Note, Physician Chief Complaint: afib History of Present Illness: still coughing; no sob; denies cp, syncope - Current Medication List Current Medications: Active Medications Albuterol Sulfate (Ventolin 0.083% Nebulizer Soln -) 1 amp NEB QIDR [facility] Last Admin: 04/01/17 06:10 Dose: 1 amp Ceftriaxone Sodium (Rocephin 2gm Ivpb (Pre-Docked)) 2 gm IVPB DAILY ROSI PRN Reason: Protocol Last Admin: 04/01/17 09:13 Dose: 2 gm Guaifenesin (Robitussin Dm -) 10 ml PO Q6H PRN PRN Reason: COUGH Last Admin: 03/31/17 21:23 Dose: 10 ml Sodium Chloride (Normal Saline -) 1,000 mls @ 75 mls/hr IV ASDIR [facility] Last Admin: 03/31/17 21:22 Dose: 75 mls/hr Azithromycin 250 mg/ Dextrose 250 mls @ 250 mls/hr IVPB DAILY [facility] Last Admin: 04/01/17 09:41 Dose: 250 mls/hr Metoprolol Succinate (Toprol Xl -) 50 mg PO BID [facility] Last Admin: 04/01/17 09:41 Dose: 50 mg Metoprolol Tartrate (Lopressor Injection -) 5 mg IVPUSH Q4H PRN PRN Reason: TACHYCARDIA Last Admin: 04/01/17 08:53 Dose: 5 mg - Objective Vital Signs: Vital Signs Temperature 97.8 F 04/01/17 10:00 Pulse Rate 102 H 04/01/17 10:00 Respiratory Rate 20 04/01/17 10:00 Blood Pressure 125/68 04/01/17 10:00 O2 Sat by Pulse Oximetry (%) 98 04/01/17 09:00 Constitutional: Yes: Well Nourished, No Distress, Calm Cardiovascular: Yes: Pulse Irregular, S1, S2. No: Gallop, Murmur Respiratory: Yes: Regular, CTA Bilaterally. No: Accessory Muscle Use, Rales, Wheezes Extremities: No: Cold Edema: No Neurological: Yes: Alert, Oriented Psychiatric: No: Agitated Labs: CBC, BMP 04/01/17 05:00 04/01/17 05:00 INR, PTT INR 2.84 (0.82-1.09) H 04/01/17 05:00 - ....Imaging EKG: Other (tele: AF to 150s-160s last night and this am) Assessment/Plan EKG--AF 140s bpm; normal axis/interv; no path q's, no ST-Ts CTA chest: no PE; heart unremarkable; bibasilar atx with R base airspace dz/ infiltrates PNA: -CT chest suggestive of R base PNA--abx per pmd -abx per ID AF: -HRs remain often rapid to 150s-160s -on toprol 50 bid--incr metopr 75 bid and add diltiazem -cont warfarin (for DVT tx) -BNP 1000, no priors, phys exam no signs of chf -trop neg x 3, ECG non-ischemic -echo -defer stress testing to routine eval as outpt, given no s/sx of acute ischemia here -if remains in AF with difficult HR control or ongoing sx's, will plan BERNICE/DCCV prior to discharge (once coughing and PNA under control) or as outpt if pt prefers and is reasonably rate controlled/clinically stable -if HR controlled and pt asymptomatic, will d/w pt options of DCCV vs rate control strategy DVT (old): -on lifelong warfarin since -per heme/pmd CLL: -per heme
[2017-04-01] MEDS ORDERED: METOPROLOL SUCCINATE 25 MG TAB.SR.24H (FP) PO ONE (13:00)
[2017-04-01] MEDS: dilTIAZem HCL 60 MG TABLET (FP) PO SCH ×2 (13:17→21:16)
--- NOTE | 2017-04-01 15:19 | PN ---
Teaching Attending Note Name of Resident: Tommy Joe ATTENDING PHYSICIAN STATEMENT I saw and evaluated the patient. I reviewed the resident's note and discussed the case with the resident. I agree with the resident's findings and plan as documented. SUBJECTIVE: Patient seen and examined in the ICU. Awake and alert. Remains in Rapid AFib. Denies CP but does feel some palpitations. No SOB. Minimal dry cough. Intake & Output 03/29/17 03/30/17 03/31/17 04/01/17 23:59 23:59 23:59 23:59 Intake Total 1000 3350 855 Output Total 800 750 Balance 1000 2550 105 Weight 177 lb 8 oz 174 lb 2 oz Last Vital Signs Temp Pulse Resp BP Pulse Ox 98.7 F 121 H 20 121/76 98 04/01/17 14:00 04/01/17 14:00 04/01/17 14:00 04/01/17 14:00 04/01/17 09:00 Active Medications Albuterol Sulfate (Ventolin 0.083% Nebulizer Soln -) 1 amp NEB QIDR [facility] Last Admin: 04/01/17 11:25 Dose: 1 amp Ceftriaxone Sodium (Rocephin 2gm Ivpb (Pre-Docked)) 2 gm IVPB DAILY ROSI PRN Reason: Protocol Last Admin: 04/01/17 09:13 Dose: 2 gm Diltiazem HCl (Cardizem -) 60 mg PO TID [facility] Last Admin: 04/01/17 13:17 Dose: 60 mg Guaifenesin (Robitussin Dm -) 10 ml PO Q6H PRN PRN Reason: COUGH Last Admin: 03/31/17 21:23 Dose: 10 ml Sodium Chloride (Normal Saline -) 1,000 mls @ 75 mls/hr IV ASDIR [facility] Last Admin: 03/31/17 21:22 Dose: 75 mls/hr Azithromycin 250 mg/ Dextrose 250 mls @ 250 mls/hr IVPB DAILY [facility] Last Admin: 04/01/17 09:41 Dose: 250 mls/hr Metoprolol Succinate (Toprol Xl -) 75 mg PO BID [facility] Metoprolol Tartrate (Lopressor Injection -) 5 mg IVPUSH Q4H PRN PRN Reason: TACHYCARDIA Last Admin: 04/01/17 08:53 Dose: 5 mg Constitutional: Yes: No Distress Eyes: Yes: Conjunctiva Clear, EOM Intact, Other HENT: Yes: Normocephalic Neck: Yes: Supple, Trachea Midline Cardiovascular: Yes: Regular Rate and Rhythm Respiratory: Yes: Cough, Diminished, Rhonchi. No: Accessory Muscle Use, Rales, Stridor, Tachypnea, Wheezes Gastrointestinal: Yes: Normal Bowel Sounds, Soft ...Rectal Exam: No: Deferred Renal/: Yes: WNL Musculoskeletal: Yes: WNL Edema: No Peripheral Pulses WNL: Yes Integumentary: Yes: WNL Neurological: Yes: WNL, Alert, Oriented ...Motor Strength: WNL Psychiatric: Yes: WNL, Alert, Oriented Labs: Laboratory Results - last 24 hr 03/31/17 04/01/17 04/01/17 04:30 05:00 05:00 WBC 207.1 H* RBC 3.45 L Hgb 11.2 L Hct 33.2 L MCV 96.3 H MCH 32.5 MCHC 33.8 RDW 13.5 Plt Count 135 MPV 8.2 Total Counted 100 Neutrophils % No Result Required. Neutrophils % (Manual) 4 L Lymphocytes % No Result Required. Lymphocytes % (Manual) 95 H* D Monocytes % (Manual) 1 L Smudge Cells Many Platelet Estimate Adequate PT with INR 32.10 H INR 2.84 H Sodium Potassium Chloride Carbon Dioxide Anion Gap BUN Creatinine Creat Clearance w eGFR Random Glucose Calcium Total Bilirubin AST ALT Alkaline Phosphatase Total Protein Albumin Urine Color Ltyellow Urine Appearance Clear Urine pH 5.0 D Ur Specific [place] 1.020 Urine Protein Negative Urine Glucose (UA) Negative Urine Ketones Negative Urine Blood 2+ H Urine Nitrite Negative Urine Bilirubin Negative Urine Urobilinogen Negative Ur Leukocyte Esterase Negative Urine RBC 16 Urine WBC 1 04/01/17 05:00 WBC RBC Hgb Hct MCV MCH MCHC RDW Plt Count MPV Total Counted Neutrophils % Neutrophils % (Manual) Lymphocytes % Lymphocytes % (Manual) Monocytes % (Manual) Smudge Cells Platelet Estimate PT with INR INR Sodium 141 Potassium 3.8 Chloride 108 H Carbon Dioxide 25 Anion Gap 8 BUN 15 Creatinine 0.7 Creat Clearance w eGFR > 60 Random Glucose 107 H D Calcium 7.7 L Total Bilirubin 0.6 D AST 19 D ALT 22 D Alkaline Phosphatase 120 H Total Protein 5.6 L Albumin 2.7 L Urine Color Urine Appearance Urine pH Ur Specific [place] Urine Protein Urine Glucose (UA) Urine Ketones Urine Blood Urine Nitrite Urine Bilirubin Urine Urobilinogen Ur Leukocyte Esterase Urine RBC Urine WBC Problem List - Problems (1) CLL (chronic lymphocytic leukemia) Code(s): C91.10 - CHRONIC LYMPHOCYTIC LEUK OF B-CELL TYPE NOT ACHIEVE REMIS (2) Pneumonia Code(s): J18.9 - PNEUMONIA, UNSPECIFIED ORGANISM (3) SOB (shortness of breath) Code(s): R06.02 - SHORTNESS OF BREATH (4) Atrial fibrillation with rapid ventricular response Code(s): I48.91 - UNSPECIFIED ATRIAL FIBRILLATION (5) DVT (deep venous thrombosis) Code(s): I82.409 - ACUTE EMBOLISM AND THOMBOS UNSP DEEP VN UNSP LOWER EXTREMITY Assessment/Plan Rocephin daily Follow cultures O2 as needed AC Cardiac Telemetry monitoring Need to check old sleep study Dr Guzman Critical care time spent in reviewing chart, evaluating patient and formulating plan - 36 minutes. Problem List - Problems (1) CLL (chronic lymphocytic leukemia) Code(s): C91.10 - CHRONIC LYMPHOCYTIC LEUK OF B-CELL TYPE NOT ACHIEVE REMIS (2) Pneumonia Code(s): J18.9 - PNEUMONIA, UNSPECIFIED ORGANISM (3) SOB (shortness of breath) Code(s): R06.02 - SHORTNESS OF BREATH (4) Atrial fibrillation with rapid ventricular response Code(s): I48.91 - UNSPECIFIED ATRIAL FIBRILLATION (5) DVT (deep venous thrombosis) Code(s): I82.409 - ACUTE EMBOLISM AND THOMBOS UNSP DEEP VN UNSP LOWER EXTREMITY
--- NOTE | 2017-04-01 16:15 | PN ---
Physical Exam: SUBJECTIVE: Patient seen and examined at bedside. No complaints at this time. No acute events overnight. Pt is still in rapid afib. Denies cp, sob, abd pain, nausea, vomiting. OBJECTIVE: Vital Signs Period Temp Pulse Resp BP Sys/Marin Pulse Ox Last 24 Hr 97.8 F-99.1 F 92-158 20-23 100-131/61-78 98-98 GENERAL: The patient is awake, alert, and fully oriented, in no acute distress. HEAD: Normal with no signs of trauma. EYES: extraocular movements intact, sclera anicteric, conjunctiva clear. No ptosis. ENT:oropharynx clear without exudates, moist mucous membranes. NECK: Trachea midline, full range of motion, supple. LUNGS: Breath sounds equal, clear to auscultation bilaterally, no wheezes, no crackles, no accessory muscle use. HEART: irregularrhythm, S1, S2 without murmur, rub or gallop. ABDOMEN: Soft, nontender, nondistended, normoactive bowel sounds, no guarding, no rebound, no hepatosplenomegaly, no masses. EXTREMITIES: 2+ pulses, warm, well-perfused, no edema. NEUROLOGICAL: Cranial nerves II through XII grossly intact. Normal speech, gait not observed. PSYCH: Normal mood, normal affect. SKIN: Warm, dry, normal turgor, no rashes or lesions noted Laboratory Results - last 24 hr 04/01/17 04/01/17 04/01/17 05:00 05:00 05:00 WBC 207.1 H* RBC 3.45 L Hgb 11.2 L Hct 33.2 L MCV 96.3 H MCH 32.5 MCHC 33.8 RDW 13.5 Plt Count 135 MPV 8.2 Total Counted 100 Neutrophils % No Result Required. Neutrophils % (Manual) 4 L Lymphocytes % No Result Required. Lymphocytes % (Manual) 95 H* D Monocytes % (Manual) 1 L Smudge Cells Many Platelet Estimate Adequate PT with INR 32.10 H INR 2.84 H Sodium 141 Potassium 3.8 Chloride 108 H Carbon Dioxide 25 Anion Gap 8 BUN 15 Creatinine 0.7 Creat Clearance w eGFR > 60 Random Glucose 107 H D Calcium 7.7 L Total Bilirubin 0.6 D AST 19 D ALT 22 D Alkaline Phosphatase 120 H Total Protein 5.6 L Albumin 2.7 L Active Medications Generic Name Dose Route Start Last Admin Trade Name Freq PRN Reason Stop Dose Admin Albuterol Sulfate 1 amp 03/31/17 12:00 04/01/17 11:25 Ventolin 0.083% Nebulizer Soln - NEB 1 amp QIDR ROSI Administration Ceftriaxone Sodium 2 gm 04/01/17 10:00 04/01/17 09:13 Rocephin 2gm Ivpb (Pre-Docked) IVPB 2 gm DAILY ROSI Administration Protocol Diltiazem HCl 60 mg 04/01/17 14:00 04/01/17 13:17 Cardizem - PO 60 mg TID ROSI Administration Guaifenesin 10 ml 03/30/17 21:09 03/31/17 21:23 Robitussin Dm - PO 10 ml Q6H PRN Administration COUGH Sodium Chloride 1,000 mls @ 75 mls/hr 03/30/17 21:10 03/31/17 21:22 Normal Saline - IV 75 mls/hr ASDIR ROSI Administration Azithromycin 250 mg/ Dextrose 250 mls @ 250 mls/hr 04/01/17 10:00 04/01/17 09: 41 IVPB 250 mls/hr DAILY ROSI Administration Metoprolol Succinate 75 mg 04/01/17 22:00 Toprol Xl - PO BID ROSI Metoprolol Tartrate 5 mg 03/30/17 21:05 04/01/17 08:53 Lopressor Injection - IVPUSH 5 mg Q4H PRN Administration TACHYCARDIA ASSESSMENT/PLAN: 71M w PMH DVT, CLL, AF on Coumadin who presented to ED with productive cough for 4 days who was self treating with Augmentin. #AF with rapid response -cardizem -metoprolol -c/w coumadin #CAP -Pt feeling much better -Rocephin -Zithromax -cultures pending #CLL -Pt follows with Dr Patino -baseline WBC around 190,000 #FEN -not on fluids -mild hyperchloremia -regular diet #Dispo Tommy Joe MD PGY-1 case discussed with attending Visit type - Emergency Visit Emergency Visit: No - New Patient This patient is new to me today: No - Critical Care Critical Care patient: No - Discharge Referral Referred to [facility] Med P.C.: No
[2017-04-01] MEDS: WARFARIN NA 2 MG TABLET (UD) PO SCH (17:36)
[2017-04-01] MEDS: guaiFENesin/D-METHORPHAN HB 10 ML UNIT-DOSE CUPS PO PRN (21:16)
[2017-04-01] MEDS: SODIUM CHLORIDE 1,000 ML IV SCH (21:21)
[2017-04-02] MEDS: ALBUTEROL SO4 0.083% IH SOL 2.5 MG/3 ML VIAL.NEB. NEB SCH ×4 (00:01→19:00)
[2017-04-02] MEDS: dilTIAZem HCL 60 MG TABLET (FP) PO SCH ×3 (05:31→21:12)
[2017-04-02 06:34] LABS: INR 2.53 (0.82-1.09); PROTHROMBIN TIME (PATIENT) 28.6 SEC (9.98-11.88)
[2017-04-02] MEDS: AZITHROMYCIN IVPB 250 MG in DEXTROSE 5%-WATER - 250 ML IVPB SCH (09:28)
--- NOTE | 2017-04-02 09:46 | PN ---
Progress Note (short form) - Note Progress Note: doing well less cough Vital Signs Period Temp Pulse Resp BP Sys/Marin Pulse Ox Last 24 Hr 97.8 F-98.7 F 69-121 14-28 92-125/50-76 96 cor-rrr lungs clear abd soft,nt ext no edema CBC, BMP 04/01/17 05:00 04/01/17 05:00 Microbiology 03/30/17 14:30 Blood - Peripheral Venous Blood Culture - Preliminary NO GROWTH OBTAINED AFTER 48 HOURS, INCUBATION TO CONTINUE FOR 3 DAYS. 03/30/17 14:30 Blood - Peripheral Venous Blood Culture - Preliminary NO GROWTH OBTAINED AFTER 48 HOURS, INCUBATION TO CONTINUE FOR 3 DAYS. 03/31/17 13:39 Urine For Antigen Detection Legionella Antigen - Final 03/31/17 13:39 Urine For Antigen Detection Streptococcus pneumoniae Antigen (M - Final imp/reccd RLL pneumonia-day #3 antibiotics -could switch to po ceftin 500 bid for total 7 days, complete 5 days of zithromax CLL- not neutropenic history of DVT afib cultures legionella urinary antigen mycoplasma serology rocephin/zithromax follow INR closely while on antibiotics d/w dr levi Problem List - Problems (1) Pneumonia Code(s): J18.9 - PNEUMONIA, UNSPECIFIED ORGANISM (2) DVT (deep venous thrombosis) Code(s): I82.409 - ACUTE EMBOLISM AND THOMBOS UNSP DEEP VN UNSP LOWER EXTREMITY (3) CLL (chronic lymphocytic leukemia) Code(s): C91.10 - CHRONIC LYMPHOCYTIC LEUK OF B-CELL TYPE NOT ACHIEVE REMIS (4) Atrial fibrillation with rapid ventricular response Code(s): I48.91 - UNSPECIFIED ATRIAL FIBRILLATION
[2017-04-02] MEDS: METOPROLOL SUCCINATE 50 MG TAB.SR.24H (FP) PO SCH ×2 (10:35→21:11)
[2017-04-02] MEDS: cefTRIAXone 2 GM/100 ML BAG (PRE-DOCKED) IVPB SCH (10:35)
--- NOTE | 2017-04-02 11:02 | PN ---
Progress Note, Physician Chief Complaint: No complaints but anxious. History of Present Illness: Patient with Acute Pulmonary infiltrate and acute A. Fib is improved with tachycardia controlled and ID rec:Oral antibiotics. Will transfer to telemetry today and repeat CBC INR AM. If no events and rate controlled overnite then D/C home AM. Patient to this point does not want to have Cardioversion. - Current Medication List Current Medications: Active Medications Albuterol Sulfate (Ventolin 0.083% Nebulizer Soln -) 1 amp NEB QIDR [facility] Last Admin: 04/02/17 06:30 Dose: 1 amp Ceftriaxone Sodium (Rocephin 2gm Ivpb (Pre-Docked)) 2 gm IVPB DAILY [facility] PRN Reason: Protocol Last Admin: 04/02/17 10:35 Dose: 2 gm Diltiazem HCl (Cardizem -) 60 mg PO TID [facility] Last Admin: 04/02/17 05:31 Dose: 60 mg Guaifenesin (Robitussin Dm -) 10 ml PO Q6H PRN PRN Reason: COUGH Last Admin: 04/01/17 21:16 Dose: 10 ml Sodium Chloride (Normal Saline -) 1,000 mls @ 75 mls/hr IV ASDIR [facility] Last Admin: 04/01/17 21:21 Dose: 75 mls/hr Azithromycin 250 mg/ Dextrose 250 mls @ 250 mls/hr IVPB DAILY [facility] Last Admin: 04/02/17 09:28 Dose: 250 mls/hr Metoprolol Succinate (Toprol Xl -) 75 mg PO BID [facility] Last Admin: 04/02/17 10:35 Dose: 75 mg Metoprolol Tartrate (Lopressor Injection -) 5 mg IVPUSH Q4H PRN PRN Reason: TACHYCARDIA Last Admin: 04/01/17 08:53 Dose: 5 mg Warfarin Sodium (Coumadin -) 4 mg PO DAILY@1800 [facility] Last Admin: 04/01/17 17:36 Dose: 4 mg - Objective Vital Signs: Vital Signs Temperature 98 F 04/02/17 10:00 Pulse Rate 84 04/02/17 10:00 Respiratory Rate 22 04/02/17 10:00 Blood Pressure 113/63 04/02/17 10:00 O2 Sat by Pulse Oximetry (%) 94 L 04/02/17 09:00 Constitutional: Yes: Calm Eyes: Yes: Conjunctiva Clear Cardiovascular: Yes: Pulse Irregular. No: Tachycardia Respiratory: Yes: Regular. No: Rales, Wheezes Gastrointestinal: Yes: Soft Genitourinary: No: Rainey Present Edema: No Peripheral Pulses WNL: Yes Neurological: Yes: Alert, Oriented Labs: CBC, BMP 04/01/17 05:00 04/01/17 05:00 INR, PTT INR 2.53 (0.82-1.09) H 04/02/17 05:00 Problem List - Problems (1) Atrial fibrillation with rapid ventricular response Assessment/Plan: Rate controlled at 77/min; On Metoprolol 75mg BID and cardizem 60mg TID Code(s): I48.91 - UNSPECIFIED ATRIAL FIBRILLATION (2) CLL (chronic lymphocytic leukemia) Assessment/Plan: WBC count over 207,000. Folooowed by Juli LEWIS who has not elected to start treatment. Code(s): C91.10 - CHRONIC LYMPHOCYTIC LEUK OF B-CELL TYPE NOT ACHIEVE REMIS (3) DVT (deep venous thrombosis) Assessment/Plan: Chronic and recurrent; on Coumadin lifetime. Code(s): I82.409 - ACUTE EMBOLISM AND THOMBOS UNSP DEEP VN UNSP LOWER EXTREMITY (4) Pneumonia Assessment/Plan: Infiltrate on CT chest. Now switched from IV antibiotics to PO Meds. Code(s): J18.9 - PNEUMONIA, UNSPECIFIED ORGANISM
--- NOTE | 2017-04-02 11:38 | EKG ---
Test Reason : Blood Pressure : / mmHG Vent. Rate : 141 BPM Atrial Rate : 122 BPM P-R Int : 000 ms QRS Dur : 072 ms QT Int : 276 ms P-R-T Axes : 000 039 030 degrees QTc Int : 422 ms ATRIAL FIBRILLATION WITH RAPID VENTRICULAR RESPONSE ABNORMAL ECG WHEN COMPARED WITH ECG OF 13-SEP-2015 12:56, ATRIAL FIBRILLATION HAS REPLACED SINUS RHYTHM VENT. RATE HAS INCREASED BY 65 BPM CLINICAL CORRELATION IS RECOMMENDED AND FOLLOWUP EKG INDICATED Confirmed by JARED ROMO MD ([id number]) on 04/02/2017 11:38:26 AM Referred By: Confirmed By:JARED ROMO MD
--- NOTE | 2017-04-02 11:43 | PN ---
Progress Note (short form) - Note Progress Note: Chief Complaint: afib History of Present Illness: started on diltiazem 60 mg tid and toprol 75 bid yesterday with improvement in rate control. no cp, palps, dizziness, sob. Current Medications Albuterol Sulfate (Ventolin 0.083% Nebulizer Soln -) 1 amp NEB QIDR [facility] Last Admin: 04/02/17 06:30 Dose: 1 amp Ceftriaxone Sodium (Rocephin 2gm Ivpb (Pre-Docked)) 2 gm IVPB DAILY [facility] PRN Reason: Protocol Last Admin: 04/02/17 10:35 Dose: 2 gm Diltiazem HCl (Cardizem -) 60 mg PO TID [facility] Last Admin: 04/02/17 05:31 Dose: 60 mg Guaifenesin (Robitussin Dm -) 10 ml PO Q6H PRN PRN Reason: COUGH Last Admin: 04/01/17 21:16 Dose: 10 ml Sodium Chloride (Normal Saline -) 1,000 mls @ 75 mls/hr IV ASDIR [facility] Last Admin: 04/01/17 21:21 Dose: 75 mls/hr Azithromycin 250 mg/ Dextrose 250 mls @ 250 mls/hr IVPB DAILY [facility] Last Admin: 04/02/17 09:28 Dose: 250 mls/hr Metoprolol Succinate (Toprol Xl -) 75 mg PO BID [facility] Last Admin: 04/02/17 10:35 Dose: 75 mg Metoprolol Tartrate (Lopressor Injection -) 5 mg IVPUSH Q4H PRN PRN Reason: TACHYCARDIA Last Admin: 04/01/17 08:53 Dose: 5 mg Warfarin Sodium (Coumadin -) 4 mg PO DAILY@1800 [facility] Last Admin: 04/01/17 17:36 Dose: 4 mg Vital Signs - 24 hr 04/01/17 04/01/17 04/01/17 12:00 14:00 18:00 Temperature 98.7 F Pulse Rate 92 H 121 H 78 Respiratory 20 20 18 Rate Blood Pressure 106/74 121/76 117/67 O2 Sat by Pulse Oximetry (%) 04/01/17 04/01/17 04/01/17 20:00 20:42 22:00 Temperature 98.6 F Pulse Rate 84 76 Respiratory 25 H 25 H 17 Rate Blood Pressure 115/59 109/68 O2 Sat by Pulse 96 Oximetry (%) 04/02/17 04/02/17 04/02/17 00:00 02:00 04:00 Temperature 98.0 F Pulse Rate 69 83 78 Respiratory 28 H 24 24 Rate Blood Pressure 92/50 118/59 92/63 O2 Sat by Pulse Oximetry (%) 04/02/17 04/02/17 04/02/17 06:00 08:00 09:00 Temperature 98.7 F 97.9 F Pulse Rate 73 83 Respiratory 14 22 Rate Blood Pressure 125/71 102/63 O2 Sat by Pulse 94 L Oximetry (%) 04/02/17 10:00 Temperature 98 F Pulse Rate 84 Respiratory 22 Rate Blood Pressure 113/63 O2 Sat by Pulse Oximetry (%) Constitutional: Yes: Well Nourished, No Distress, Calm Cardiovascular: Yes: Pulse Irregular, S1, S2. No: Gallop, Murmur Respiratory: Yes: Regular, CTA Bilaterally. No: Accessory Muscle Use, Rales, Wheezes + bs soft nt nd Extremities: No: Cold Edema: No Neurological: Yes: Alert, Oriented Psychiatric: No: Agitated Labs: no CBC, BMP Laboratory Tests 04/01/17 04/02/17 05:00 05:00 INR 2.53 H Albumin 2.7 L - ....Imaging EKG: Other (tele: rate controlled af) Assessment/Plan EKG--AF 140s bpm; normal axis/interv; no path q's, no ST-Ts CTA chest: no PE; heart unremarkable; bibasilar atx with R base airspace dz/ infiltrates 71 yo with h/o CLL, DVT--on warfarin who p/w RLL PNA, hospital course complicated by new onset afib. PNA: -CT chest suggestive of R base PNA--abx per pmd -abx per ID nwe AF: -BNP 1000, no priors, phys exam no signs of chf -trop neg x 3, ECG non-ischemic -04/01 HRs still rapid to 150s-160s on toprol 50 bid --> incr metop to 75 bid and added dilt 60 tid --> improved rate control. Will con't same regimen . Lyte repletion prn. -cont warfarin (for DVT tx) -echo pending -defer stress testing to routine eval as outpt, given no s/sx of acute ischemia here -if remains in AF with difficult HR control or ongoing sx's, will plan BERNICE/DCCV prior to discharge (once coughing and PNA under control) or as outpt if pt prefers and is reasonably rate controlled/clinically stable -if HR controlled and pt asymptomatic, will d/w pt options of DCCV vs rate control strategy. Patient currently leading towards rate control strategy. DVT (old): -on lifelong warfarin since -per heme/pmd CLL: -per heme
[2017-04-02] MEDS ORDERED: ALBUTEROL SO4 0.083% IH SOL 2.5 MG/3 ML VIAL.NEB. NEB ONE (12:32)
--- NOTE | 2017-04-02 13:17 | PN ---
Teaching Attending Note Name of Resident: Tommy Joe ATTENDING PHYSICIAN STATEMENT I saw and evaluated the patient. I reviewed the resident's note and discussed the case with the resident. I agree with the resident's findings and plan as documented. SUBJECTIVE: Patient seen and examined in the ICU. Awake and alert. Remains in rate control AFib. Denies CP or some palpitations. No SOB. Minimal dry cough. Intake & Output 03/30/17 03/31/17 04/01/17 04/02/17 23:59 23:59 23:59 23:59 Intake Total 1000 3350 3035 720 Output Total 800 1550 1400 Balance 1000 2550 1485 -680 Weight 177 lb 8 oz 174 lb 2 oz 177 lb 6.4 oz Last Vital Signs Temp Pulse Resp BP Pulse Ox 98 F 82 22 128/76 94 L 04/02/17 10:00 04/02/17 12:00 04/02/17 12:00 04/02/17 12:00 04/02/17 09:00 Active Medications Albuterol Sulfate (Ventolin 0.083% Nebulizer Soln -) 1 amp NEB QIDR [facility] Last Admin: 04/02/17 06:30 Dose: 1 amp Ceftriaxone Sodium (Rocephin 2gm Ivpb (Pre-Docked)) 2 gm IVPB DAILY ROSI PRN Reason: Protocol Last Admin: 04/02/17 10:35 Dose: 2 gm Diltiazem HCl (Cardizem -) 60 mg PO TID [facility] Last Admin: 04/02/17 05:31 Dose: 60 mg Guaifenesin (Robitussin Dm -) 10 ml PO Q6H PRN PRN Reason: COUGH Last Admin: 04/01/17 21:16 Dose: 10 ml Sodium Chloride (Normal Saline -) 1,000 mls @ 75 mls/hr IV ASDIR ROSI Last Admin: 04/01/17 21:21 Dose: 75 mls/hr Azithromycin 250 mg/ Dextrose 250 mls @ 250 mls/hr IVPB DAILY [facility] Last Admin: 04/02/17 09:28 Dose: 250 mls/hr Metoprolol Succinate (Toprol Xl -) 75 mg PO BID [facility] Last Admin: 04/02/17 10:35 Dose: 75 mg Metoprolol Tartrate (Lopressor Injection -) 5 mg IVPUSH Q4H PRN PRN Reason: TACHYCARDIA Last Admin: 04/01/17 08:53 Dose: 5 mg Warfarin Sodium (Coumadin -) 4 mg PO DAILY@1800 ROSI Last Admin: 04/01/17 17:36 Dose: 4 mg Constitutional: Yes: No Distress Eyes: Yes: Conjunctiva Clear, EOM Intact, Other HENT: Yes: Normocephalic Neck: Yes: Supple, Trachea Midline Cardiovascular: Yes: Regular Rate and Rhythm Respiratory: Yes: Cough, Diminished, Rhonchi. No: Accessory Muscle Use, Rales, Stridor, Tachypnea, Wheezes Gastrointestinal: Yes: Normal Bowel Sounds, Soft ...Rectal Exam: No: Deferred Renal/: Yes: WNL Musculoskeletal: Yes: WNL Edema: No Peripheral Pulses WNL: Yes Integumentary: Yes: WNL Neurological: Yes: WNL, Alert, Oriented ...Motor Strength: WNL Psychiatric: Yes: WNL, Alert, Oriented Labs: Laboratory Results - last 24 hr 04/02/17 05:00 PT with INR 28.60 H INR 2.53 H Problem List - Problems (1) CLL (chronic lymphocytic leukemia) Code(s): C91.10 - CHRONIC LYMPHOCYTIC LEUK OF B-CELL TYPE NOT ACHIEVE REMIS (2) Pneumonia Code(s): J18.9 - PNEUMONIA, UNSPECIFIED ORGANISM (3) SOB (shortness of breath) Code(s): R06.02 - SHORTNESS OF BREATH (4) Atrial fibrillation with rapid ventricular response Code(s): I48.91 - UNSPECIFIED ATRIAL FIBRILLATION (5) DVT (deep venous thrombosis) Code(s): I82.409 - ACUTE EMBOLISM AND THOMBOS UNSP DEEP VN UNSP LOWER EXTREMITY Assessment/Plan ABX per ID AC Need to check old sleep study No Pulmonary contraindication for D/C planning Dr Guzman Problem List - Problems (1) CLL (chronic lymphocytic leukemia) Code(s): C91.10 - CHRONIC LYMPHOCYTIC LEUK OF B-CELL TYPE NOT ACHIEVE REMIS (2) Pneumonia Code(s): J18.9 - PNEUMONIA, UNSPECIFIED ORGANISM (3) SOB (shortness of breath) Code(s): R06.02 - SHORTNESS OF BREATH (4) Atrial fibrillation with rapid ventricular response Code(s): I48.91 - UNSPECIFIED ATRIAL FIBRILLATION (5) DVT (deep venous thrombosis) Code(s): I82.409 - ACUTE EMBOLISM AND THOMBOS UNSP DEEP VN UNSP LOWER EXTREMITY
--- NOTE | 2017-04-02 13:31 | PN ---
Physical Exam: SUBJECTIVE: Patient seen and examined at bedside. No acute events overnight. Pt is still in afib. Denies cp, sob, abd pain, nausea, vomiting. OBJECTIVE: Vital Signs Period Temp Pulse Resp BP Sys/Marin Pulse Ox Last 24 Hr 97.9 F-98.7 F 69-121 14-28 92-128/50-76 94-96 GENERAL: The patient is awake, alert, and fully oriented, in no acute distress. HEAD: Normal with no signs of trauma. EYES: sclera anicteric, conjunctiva clear. No ptosis. ENT: oropharynx clear without exudates, moist mucous membranes. NECK: Trachea midline, full range of motion, supple. LUNGS: Breath sounds equal, clear to auscultation bilaterally, no wheezes, no crackles, no accessory muscle use. HEART: iregular rhythm, S1, S2 without murmur, rub or gallop. ABDOMEN: Soft, nontender, nondistended, normoactive bowel sounds, no guarding, no rebound, no hepatosplenomegaly, no masses. EXTREMITIES: 2+ pulses, warm, well-perfused, no edema. NEUROLOGICAL: Cranial nerves II through XII grossly intact. Normal speech, gait normal PSYCH: Normal mood, normal affect. SKIN: Warm, dry, normal turgor, no rashes or lesions noted Laboratory Results - last 24 hr 04/02/17 05:00 PT with INR 28.60 H INR 2.53 H Active Medications Generic Name Dose Route Start Last Admin Trade Name Freq PRN Reason Stop Dose Admin Albuterol Sulfate 1 amp 03/31/17 12:00 04/02/17 06:30 Ventolin 0.083% Nebulizer Soln - NEB 1 amp QIDR ROSI Administration Ceftriaxone Sodium 2 gm 04/01/17 10:00 04/02/17 10:35 Rocephin 2gm Ivpb (Pre-Docked) IVPB 2 gm DAILY ROSI Administration Protocol Diltiazem HCl 60 mg 04/01/17 14:00 04/02/17 05:31 Cardizem - PO 60 mg TID ROSI Administration Guaifenesin 10 ml 03/30/17 21:09 04/01/17 21:16 Robitussin Dm - PO 10 ml Q6H PRN Administration COUGH Sodium Chloride 1,000 mls @ 75 mls/hr 03/30/17 21:10 04/01/17 21:21 Normal Saline - IV 75 mls/hr ASDIR ROSI Administration Azithromycin 250 mg/ Dextrose 250 mls @ 250 mls/hr 04/01/17 10:00 04/02/17 09: 28 IVPB 250 mls/hr DAILY ROSI Administration Metoprolol Succinate 75 mg 04/01/17 22:00 04/02/17 10:35 Toprol Xl - PO 75 mg BID ROSI Administration Metoprolol Tartrate 5 mg 03/30/17 21:05 04/01/17 08:53 Lopressor Injection - IVPUSH 5 mg Q4H PRN Administration TACHYCARDIA Warfarin Sodium 4 mg 04/01/17 18:00 04/01/17 17:36 Coumadin - PO 4 mg DAILY@1800 ROSI Administration ASSESSMENT/PLAN: 71M w PMH DVT, CLL, AF on Coumadin who presented to ED with productive cough for 4 days who was self treating with Augmentin. #AF with rapid response -cardizem -metoprolol -c/w coumadin, INR 2.53 #Sepsis in the setting of CAP -Pt feeling much better -Rocephin -Zithromax -cultures negative so far #CLL -Pt follows with Dr Patino -baseline WBC around 190,000 #FEN -not on fluids -mild hyperchloremia -regular diet #PPx -on Coumadin #Dispo -admitted to ICU Tommy Joe MD PGY-1 case discussed with attending Visit type - Emergency Visit Emergency Visit: No - New Patient This patient is new to me today: No - Critical Care Critical Care patient: No - Discharge Referral Referred to [facility] Med P.C.: No
[2017-04-02 14:45] LABS: URINE APPEARANCE CLEAR; URINE BILIRUBIN NEGATIVE (NEGATIVE); URINE BLOOD 2+ (NEGATIVE); URINE COLOR LTYELLOW; URINE GLUCOSE (UA) NEGATIVE (NEGATIVE); URINE KETONE NEGATIVE (NEGATIVE); URINE NITRITE NEGATIVE (NEGATIVE); URINE PROTEIN NEGATIVE (NEGATIVE); URINE UROBILINOGEN NEGATIVE mg/dL (0.2-1.0)
[2017-04-02 14:51] LABS: URINE BACTERIA RARE /hpf (NONE SEEN); URINE MUCUS RARE; URINE RBC 1 /hpf (0-3); URINE WBC 2 /hpf (3-5)
[2017-04-02] MEDS: WARFARIN NA 2 MG TABLET (UD) PO SCH (17:26)
[2017-04-02 18:03] LABS: URINE LEUK ESTERASE Negative (NEGATIVE)
[2017-04-03] MEDS: ALBUTEROL SO4 0.083% IH SOL 2.5 MG/3 ML VIAL.NEB. NEB SCH ×3 (00:40→11:36)
[2017-04-03] MEDS: dilTIAZem HCL 60 MG TABLET (FP) PO SCH (05:44)
[2017-04-03 06:04] LABS: MCH 32.5 pg (25.7-33.7); MCHC 33.3 g/dl (32.0-35.9); MEAN CELL VOLUME 97.7 fl (80-96); PLATELET COUNT 172 K/MM3 (134-434); RDW 13.6 % (11.9-15.9)
[2017-04-03 06:23] LABS: INR 2.47 (0.82-1.09); PROTHROMBIN TIME (PATIENT) 27.9 SEC (9.98-11.88)
[2017-04-03 06:29] LABS: ANION GAP 6 (8-16); CALCIUM 7.9 mg/dL (8.5-10.1); CO2 28 mmol/L (21-32); GLUCOSE,RANDOM 103 mg/dL (74-106); MAGNESIUM 2.1 mg/dL (1.8-2.4); WHITE BLOOD COUNT 220.3 K/mm3 (4.0-10.0)
[2017-04-03 08:07] LABS: TOTAL CELLS COUNTED 100
[2017-04-03 08:08] LABS: SMUDGE CELLS MANY
--- NOTE | 2017-04-03 08:22 | PN ---
Progress Note (short form) - Note Progress Note: ID Discussed this morning with Dr Canas Clinical improvement noted Ceftriaxone and Azithromycin Selected Entries 04/03/17 08:00 Temperature 97.9 F Pulse Rate 71 Respiratory 18 Rate Blood Pressure 110/64 Microbiology 03/31/17 13:39 Urine For Antigen Detection Legionella Antigen - Final 03/31/17 13:39 Urine For Antigen Detection Streptococcus pneumoniae Antigen (M - Final 03/30/17 14:30 Blood - Peripheral Venous Blood Culture - Preliminary NO GROWTH OBTAINED AFTER 72 HOURS, INCUBATION TO CONTINUE FOR 2 DAYS. 03/30/17 14:30 Blood - Peripheral Venous Blood Culture - Preliminary NO GROWTH OBTAINED AFTER 72 HOURS, INCUBATION TO CONTINUE FOR 2 DAYS. Laboratory Tests 04/01/17 04/03/17 05:00 05:50 WBC 220.3 H* Hgb 10.6 L Hct 31.8 L Plt Count 172 D M.pneumoniae IgG Titer Pending M.pneumoniae IgM Titer Pending Assessment Can recieve the balance of antibiotic orally as advised Ceftin and azithromycin orally 3 days for CLL unspecified infiltrate Grace LEWIS
[2017-04-03] MEDS: cefTRIAXone 2 GM/100 ML BAG (PRE-DOCKED) IVPB SCH (09:32)
[2017-04-03] MEDS: METOPROLOL SUCCINATE 50 MG TAB.SR.24H (FP) PO SCH (09:32)
[2017-04-03] MEDS ORDERED: CEFUROXIME AXETIL 500 MG TABLET PO SCH (10:00)
[2017-04-03] MEDS ORDERED: AZITHROMYCIN 250 MG TABLET PO SCH (10:00)
[2017-04-03] MEDS ORDERED: PT OWN MED DRAWER 7, Y5N ONE (10:29)
[2017-04-03 10:57] VITALS: TEMP 98.6
[2017-04-03 12:45] VITALS: BP 126/68; PULSE 74
--- NOTE | 2017-04-03 19:00 | DS ---
Physical Examination Vital Signs: Vital Signs Temperature 98.6 F 04/03/17 10:00 Pulse Rate 74 04/03/17 12:00 Respiratory Rate 18 04/03/17 12:00 Blood Pressure 126/68 04/03/17 12:00 O2 Sat by Pulse Oximetry (%) 100 04/03/17 09:00 Constitutional: Yes: Calm, Pallor Cardiovascular: Yes: Pulse Irregular. No: Tachycardia Respiratory: Yes: Diminished. No: Rales, SOB, Wheezes Gastrointestinal: Yes: Soft Edema: No Neurological: Yes: Alert, Oriented Labs: CBC, BMP 04/03/17 05:50 04/03/17 05:50 Discharge Summary Reason For Visit: SHORTNESS OF BREATH acute pneumonia. Acute atrial fibrillation Chronic lymphocytic leukemia. History of DVT, recurrent Acute shortness of breath Procedures: Principal: ICU monitoring. Monitoring INR. Intravenous medicine for antibiotics and to control rapid heart rate Other Procedures: cardiology, pulmonary, infectious disease and content editor consultations. Followup CBC to follow extremely elevated white count. CAT scan with contrast of lungs. Medication to control heart rate oral and continue IV antibiotics Hospital Course: responded fairly quickly to have rate under control but remains in atrial fibrillation IV antibiotics, switched to oral medicine and discharge plan followup instructions given to patient Condition: Improved - Instructions Diet, Activity, Other Instructions: No added salt. Have EKG and INR this Saturday See Cardiology Dr. Wheat or Dr. Cardoza next week if able Dr. Canas in apprx [address] Patino (Hematology) this month. No heavy lifting but a walk daily is fine. Over the counter plain robitussin and [place] lozenges PRN Referrals: Bhargav Canas MD [Primary Care Provider] - Clayton Wheat MD [Staff Physician] - Disposition: HOME - Home Medications Comprehensive Discharge Medication List: Ambulatory Orders Azithromycin [Zithromax 250mg Tablets -] 250 mg PO DAILY #3 tablet 04/03/17 Cefuroxime Axetil [Ceftin -] 500 mg PO BID #10 tablet 04/03/17 Diltiazem [Cardizem -] 60 mg PO TID #90 tablet 04/03/17 Metoprolol Succinate [Toprol XL -] 75 mg PO BID #90 tab 04/03/17 Warfarin Na [Coumadin -] 4 mg PO DAILY@1800 tablet 04/03/17
== END 2017-04-03 12:50 | disposition home or self-care (01) | DRG 840 ==
LOC: JER 12:17 → JERBED 17:49 → JICU 20:20
PROVIDERS: ADMIT Internal Medicine; ATTEND Internal Medicine
DX: C91.10 Chronic lymphocytic leukemia of B-cell type not having achieved remission (principal); J18.9 Pneumonia, unspecified organism; I48.91 Unspecified atrial fibrillation; Z86.718 Personal history of other venous thrombosis and embolism; R06.02 Shortness of breath
CPT/HCPCS: 36415; 71010-TC; 71275-TC; 80048; 80053; 81003; 81015; 82550; 83605; 83615; 83735; 83880; 84484; 84550; 85025; 85027; 85610; 85730; 86738; 87040; 87899; 93005; 93010; 93306-TC; 94640; 99282-25